=== PATIENT | female | born 1980 | race African-American/Black ===

== ENCOUNTER 2022-12-11 12:13 | Emergency (ER) | payer BC, MEDICAID ==
[~2022-12-11] VITALS: Ht 162.6 cm; Wt 90.9 kg
[2022-12-11 12:13] VITALS: BP 163/102
[2022-12-11] MEDS ORDERED: PredniSONE 20 MG TABLET PO ONE (12:30)
[2022-12-11] MEDS ORDERED: DiphenhydrAMINE HCL 25 MG CAPSULE PO ONE (12:30)
[2022-12-11] MEDS ORDERED: TRIA15CR49 TP (13:05)
[2022-12-11] MEDS ORDERED: PRED-554 PO (13:05)
[2022-12-11] MEDS ORDERED: DIPH50CA37 PO (13:05)
== END 2022-12-11 13:16 | disposition home or self-care (01) ==
LOC: EMS 12:29
DX: L23.2 Allergic contact dermatitis due to cosmetics (principal); F17.210 Nicotine dependence, cigarettes, uncomplicated
CPT/HCPCS: 99283; J7512

== ENCOUNTER 2023-08-09 19:28 | Emergency (ER) | payer MEDICAID ==
[~2023-08-09] VITALS: Ht 162.6 cm; Wt 91.8 kg
[~2023-08-09 19:28] MED LIST: DIPH50CA37 PO; PRED-554 PO; TRIA15CR49 TP
[2023-08-09 19:31] VITALS: TEMP 98
[2023-08-09 21:12] LABS: BASOPHILS % (AUTO) 0.6 % (0.0-2.0); EOSINOPHILS % (AUTO) 3.2 % (1.0-6.0); HEMATOCRIT 30.6 % (36-46); HEMOGLOBIN 9.8 g/dL (12.0-16.0); LYMPHOCYTES # (AUTO) 2.2 K/uL (1.0-4.8); LYMPHOCYTES % (AUTO) 34.8 % (22.0-44.0); MEAN CORPUSCULAR HEMOGLOBIN 27.3 pg (26.0-34.0); MEAN CORPUSCULAR VOLUME 85 fL (80-100); MONOCYTES # (AUTO) 0.6 K/uL (0.1-1.0); MONOCYTES % (AUTO) 8.8 % (2.0-9.0); NEUTROPHILS # (AUTO) 3.3 K/uL (1.8-7.7); NEUTROPHILS % (AUTO) 52.6 % (40.0-70.0); PLATELET COUNT (AUTO) 261 K/uL (150-450); RED BLOOD CELL COUNT(AUTO) 3.58 MIL/uL (4.00-5.20); RED CELL DISTRIBUTION WIDTH 20.8 % (11.5-14.5); WHITE BLOOD COUNT (AUTO) 6.3 K/uL (4.5-11.0)
[2023-08-09 21:23] LABS: ANION GAP 5 mmol/L (8-16); CALCIUM, TOTAL 8.6 mg/dL (8.8-10.5); CARBON DIOXIDE 28 mmol/L (22-29); CHLORIDE 106 mmol/L (98-107); CREATININE 0.99 mg/dL (0.60-1.30); GLOMERULAR FILTR. RATE CALC > 60 mL/min (>60); GLUCOSE,RANDOM 102 mg/dL (70-110); POTASSIUM 3.8 mmol/L (3.5-5.1); SODIUM SERUM 139 mmol/L (136-145); UREA NITROGEN, BLOOD 14 mg/dL (7-18)
[2023-08-09 21:36] LABS: ALANINE AMINOTRANSFERASE 12 U/L (12-78); ALBUMIN 3.2 g/dL (3.4-5.0); ALKALINE PHOSPHATASE 79 U/L (46-116); ASPARTATE AMINOTRANSFERASE 21 U/L (15-37); BILIRUBIN,TOTAL 0.3 mg/dL (0.1-1.0); HCG,QUANTITATIVE < 1 mIU/mL (0-6)
[2023-08-09 21:59] VITALS: BP 135/88; PULSE 88; RESP 16
[2023-08-09] MEDS ORDERED: MedroxyPROGESTERone ACET 5 MG TABLET PO ONE ×2 (22:45)
[2023-08-09] MEDS ORDERED: MEDR5TAB5 PO (23:06)
[2023-08-16 09:31] LABS: GLUCOMETER DEV NAME(LOC) ERT.5; GLUCOSE,POINT OF CARE 95 MG/DL (70-110)
== END 2023-08-09 23:11 | disposition home or self-care (01) ==
LOC: EMS 19:28
DX: N93.9 Abnormal uterine and vaginal bleeding, unspecified (principal); E11.9 Type 2 diabetes mellitus without complications; F17.210 Nicotine dependence, cigarettes, uncomplicated
CPT/HCPCS: 76830; 76856; 80053; 82962; 84702; 85025; 99284

== ENCOUNTER 2023-08-20 08:57 | Emergency (ER) | payer MEDICAID ==
[~2023-08-20] VITALS: Ht 165.1 cm; Wt 91.0 kg
[~2023-08-20 08:57] MED LIST changes: +MEDR5TAB5 PO
[2023-08-20 08:59] VITALS: TEMP 98.5
[2023-08-20 09:50] LABS: APPEARANCE,URINE TURBID (CLEAR); BILIRUBIN,URINE NEGATIVE (NEGATIVE); GLUCOSE, URINE (UA) NEGATIVE (NEGATIVE); KETONES,URINE NEGATIVE (NEGATIVE); LEUKOCYTE ESTERASE ,URINE SMALL (NEGATIVE); NITRATE,URINE NEGATIVE (NEGATIVE); OCCULT BLOOD,URINE LARGE (NEGATIVE); PH,URINE 5.5 (5.0-8.0); PROTEIN,URINE 30-70 mg/dL (NEGATIVE); SPECIFIC GRAVITIY, URINE 1.026 (1.003-1.030); UROBILINOGEN,URINE <=1.0 mg/dL (<=1.0)
[2023-08-20] MEDS ORDERED: MEDR5TAB5 PO (09:52)
[2023-08-20 09:55] LABS: BASOPHILS % (AUTO) 0.7 % (0.0-2.0); EOSINOPHILS % (AUTO) 3.9 % (1.0-6.0); HEMATOCRIT 30.9 % (36-46); LYMPHOCYTES # (AUTO) 1.3 K/uL (1.0-4.8); LYMPHOCYTES % (AUTO) 27.1 % (22.0-44.0); MEAN CORPUSCULAR HEMOGLOBIN 28.4 pg (26.0-34.0); MEAN CORPUSCULAR HGB CONC 32.3 G/dL (31.0-37.0); MEAN CORPUSCULAR VOLUME 88 fL (80-100); MONOCYTES # (AUTO) 0.3 K/uL (0.1-1.0); MONOCYTES % (AUTO) 6.8 % (2.0-9.0); NEUTROPHILS # (AUTO) 2.9 K/uL (1.8-7.7); NEUTROPHILS % (AUTO) 61.5 % (40.0-70.0); PLATELET COUNT (AUTO) 278 K/uL (150-450); RED BLOOD CELL COUNT(AUTO) 3.52 MIL/uL (4.00-5.20); RED CELL DISTRIBUTION WIDTH 21.5 % (11.5-14.5); WHITE BLOOD COUNT (AUTO) 4.7 K/uL (4.5-11.0)
[2023-08-20 09:59] LABS: COLOR,URINE RED (YELLOW)
[2023-08-20 10:00] LABS: BACTERIA,URINE None Seen /HPF (None Seen); RBC,URINE Full Field /HPF (0-2); SQUAMOUS EPITHELIAL CELL,UR Rare /LPF (None Seen)
[2023-08-20] MEDS ORDERED: MedroxyPROGESTERone ACET 5 MG TABLET PO ONE (10:00)
[2023-08-20 10:03] LABS: ANION GAP 5 mmol/L (8-16); CALCIUM, TOTAL 8.4 mg/dL (8.8-10.5); CARBON DIOXIDE 26 mmol/L (22-29); CHLORIDE 106 mmol/L (98-107); CREATININE 0.87 mg/dL (0.60-1.30); GLOMERULAR FILTR. RATE CALC > 60 mL/min (>60); GLUCOSE,RANDOM 137 mg/dL (70-110); POTASSIUM 3.9 mmol/L (3.5-5.1); SODIUM SERUM 137 mmol/L (136-145); UREA NITROGEN, BLOOD 12 mg/dL (7-18)
[2023-08-20 10:15] LABS: ALANINE AMINOTRANSFERASE 21 U/L (12-78); ALKALINE PHOSPHATASE 65 U/L (46-116); ASPARTATE AMINOTRANSFERASE 18 U/L (15-37); BILIRUBIN,TOTAL 0.3 mg/dL (0.1-1.0); HCG,QUANTITATIVE 1 mIU/mL (0-6); TOTAL PROTEIN, SERUM 6.8 g/dL (6.4-8.2)
[2023-08-20 11:17] VITALS: BP 150/90; PULSE 88; RESP 16
== END 2023-08-20 11:23 | disposition home or self-care (01) ==
LOC: EMS 08:59
DX: N93.8 Other specified abnormal uterine and vaginal bleeding (principal); E11.9 Type 2 diabetes mellitus without complications; F17.210 Nicotine dependence, cigarettes, uncomplicated
CPT/HCPCS: 80053; 81001; 82962; 84702; 85025; 86850; 86900; 86901; 87086; 87186; 99283

== ENCOUNTER 2025-03-30 15:19 | Emergency (ER) | payer MEDICAID ==
[~2025-03-30] VITALS: Ht 165.1 cm; Wt 90.9 kg
[2025-03-30] MEDS ORDERED: METF-1211 PO (15:24)
[2025-03-30 15:25] VITALS: BP 152/98; PULSE 101; RESP 18; TEMP 98.6; O2SAT 97
[2025-03-30] MEDS ORDERED: MOXI3DRO25 OD (16:45)
[2025-03-30] MEDS: PredniSONE 20 MG TABLET PO ONE (16:47)
== END 2025-03-30 16:53 | disposition home or self-care (01) ==
LOC: EMS 15:21
DX: H10.11 Acute atopic conjunctivitis, right eye (principal); E11.9 Type 2 diabetes mellitus without complications; F17.210 Nicotine dependence, cigarettes, uncomplicated
CPT/HCPCS: 99283; J7512

== ENCOUNTER 2025-10-01 | Emergency (ER) | payer MEDICAID ==
[~2025-10-01] VITALS: Ht 165.1 cm; Wt 85.9 kg
[~2025-10-01] MED LIST changes: -DIPH50CA37 PO; +METF-1211 PO; +MOXI3DRO25 OD; -PRED-554 PO; -TRIA15CR49 TP
[2025-10-01 00:12] VITALS: TEMP 99
[2025-10-01 00:47] VITALS: BP 126/81; PULSE 108; RESP 18; O2SAT 99
== END 2025-10-01 02:08 | disposition left against medical advice (07) ==
LOC: EMS 00:06
DX: R10.9 Unspecified abdominal pain (principal); R73.9 Hyperglycemia, unspecified; Z53.21 Procedure and treatment not carried out due to patient leaving prior to being seen by health care provider
CPT/HCPCS: 82962; 99281